=== PATIENT | female | born 1935 | race Caucasian/White ===

== ENCOUNTER 2020-04-25 07:10 | Day surgery (SDC) | payer OTHER, BC ==
[~2020-04-25] VITALS: Ht 162.6 cm; Wt 103.9 kg
[~2020-04-25 07:10] MED LIST: ASA81BEC PO; CALCIUM 600 +1 EAC8 PO; CEPHALEXIN500 MG PO; COUMADIN 2.5MG2.5 M1 PO; COUMADIN 5 MG TA5 M1 PO; CYTO B PO; DILTIAZEM 24HR120 M1 PO; FISH OIL 1,0001 EAC9 PO; IRON18 M1 PO; LEVOXYL88 MCG PO; LISINOPRIL10 MG PO; LOPRESSOR50 MG PO; MULTI VITAMIN1 EACH PO; OMEPRAZOLE40 MG PO; POTASSIUM20 PO; THERA TEARS15 ML OPHTHALMIC; TORSEMIDE20 MG PO; VITAMIN D31250 MCG PO; WIXELA 250-501 EACH INH
[2020-04-25 08:00] VITALS: BP 117/65
[2020-04-25 08:14] LABS: INR 1.2
--- NOTE | 2020-04-29 06:20 | O ---
[facility] [address] [place] [address] OPERATIVE REPORT Name: GIOVANI ARAUJO Room #: DEP [facility].#: [id number] Admission: 04/25/20 Attend Phys: Kaiser Whitlock MD Discharge: 04/25/20 Date of : 37 Report #: [id number] THIS REPORT FOR: cc: Hemanth Martinez MD, Dann MD White,Kaiser Oconnor MD ~ CC: Hemanth Whitlock DATE OF SERVICE: 04/25/2020 PREOPERATIVE DIAGNOSIS: Tumor of left lower lid and cheek. POSTOPERATIVE DIAGNOSIS: Tumor of left lower lid and cheek. PROCEDURE: Excision of tumor, left lower lid and cheek with frozen section, control of margins and myocutaneous flap repair of defect. SURGEON: Kaiser Whitlock MD WARRANT CLERK: None. ANESTHESIA: MAC. COMPLICATIONS: None. INDICATIONS FOR SURGERY: This pleasant 84-year-old woman has a nodular ulcerative mass in her central left lower lid that appears to most likely be a basal cell carcinoma. She presents today for excision of this lesion with frozen sections and subsequent reconstruction of that defect. Informed consent was obtained to include but not limited to the potential risk for loss of vision, bleeding, infection, failure to improve the problem, the potential need for further surgery or treatment. DESCRIPTION OF PROCEDURE: The patient was taken to the operating room where 2% Xylocaine with epinephrine mixed with equal parts 0.75% Marcaine with Wydase was administered transcutaneously and transconjunctivally to the left lower lid, the left lateral canthus, the left medial canthus and the left cheek. The patient was subsequently prepped and draped in the usual sterile fashion. A fine tip skin marking pen was then utilized to outline the lesion including 1-2 mm of normal appearing tissue. The incisions were then made perpendicularly across the eyelid margin and drawn down to a point in the premalar space. The specimen was then oriented on a drawing for the waiting pathologist. Hemostasis was achieved in the field with diligent pinpoint monopolar cautery. The pathologist [address] [address] OPERATIVE REPORT Name: GIOVANI ARAUJO Room #: DEP [facility] M.Rita.#: [id number] Admission: 04/25/20 Attend Phys: Kaiser Whitlock MD Discharge: 04/25/20 Date of : 37 Report #: [id number] snap froze the specimen and found that the margins were clear. She felt that the lesion was most likely a basal cell carcinoma, but would defer to permanent sections. A myocutaneous flap was then developed laterally to correct the defect. Hemostasis was then re-achieved. The flap was then advanced and secured with multiple interrupted buried 5-0 Vicryl sutures deep. A 5-0 Vicryl sutures were also placed to reapproximate the tarsal stump end. The eyelid margin was reapproximated with interrupted 7-0 Vicryl sutures. The subcutaneous structures more superficially were closed with layered subcutaneous Vicryl sutures and then a final closure of 6-0 plain gut. The wound was then cleaned and dressed with erythromycin ophthalmic ointment. The patient subsequently transported to the recovery area having tolerated the procedures well with no anesthetic or operative complications being noted. <ELECTRONICALLY SIGNED> By: Kaiser Whitlock MD 04/29/20 0620 [id number] Kaiser Whitlock MD /nt
--- NOTE | 2020-04-30 12:06 | PATH ---
[facility] [address] [address] [place] [address] PATHOLOGY RPT PROCEDURE Name: GIOVANI ARAUJO Room #: DEP [facility]#: [id number] Admission: 04/25/20 Date of : 37 Discharge: 04/25/20 Report #: [id number] Path Case #: [id number] [facility] Accession Number: [id number] . 01 Material submitted: . lid - LEFT LOWER LID LESION - FS. Modifiers: left, lower . 02 Frozen section diagnosis: . FROZEN SECTION DIAGNOSIS: (Hollie Madrid M.D.) . FSA1. Left lower lid lesion, excision: - Negative for invasive carcinoma at margins. . These findings are discussed with Dr. Kaiser Whitlock in OR6 at [facility] and a written report is placed in the patient's chart. . FROZEN SECTION GROSS DESCRIPTION: The specimen is received fresh from the OR labeled with the patient's name, as "left lower lid lesion" consists of an inverted triangular specimen measuring 1.0 cm from superior to inferior, a 0.7 cm base and sides of approximately 1 cm each. The specimen is oriented as lateral, inferior and medial. At this point the specimen is inked black from lateral to inferior margin, the inferomedial half is inked blue and the superomedial half is inked green. The superior border shows a 0.3 to 0.4 cm lesion. The superior border is inked orange. At this point the specimen is sectioned into two pieces and submitted for frozen section in entirety as FSA1, and subsequently submitted for permanent sections as A1. (IUV/db; 04/25/2020) . Frozen section performed at [facility] [address], [place] [address]. IZV/LBQ . 02 Diagnosis: Skin "left lower lid", biopsy: - BASAL CELL CARCINOMA; completely excised. (MLK:[facility]; 04/29/2020) [facility] 04/29/2020 15[address] [facility] . 02 Electronically signed: . Eze Arreguin MD, Pathologist NPI- [id number] . 01 Gross description: . SEE FROZEN SECTION GROSS DESCRIPTION. /LBQ 04/25/2020 1441 [facility] [address] PATHOLOGY RPT PROCEDURE Name: GIOVANI ARAUJO Room #: DEP [facility] [place]#: [id number] Admission: 04/25/20 Date of : 37 Discharge: 04/25/20 Report #: [id number] Path Case #: [id number] . 02 Pathologist provided ICD-10: C44.1192 . 02 CPT . 631111, 609271 Specimen Comment: A courtesy copy of this report has been sent to [phone], [phone] Specimen Comment: [phone] Specimen Comment: Report sent to / DR JACINTO Performed at: [address], [place] [id number] MD Esdras Joyce MD Phone: [phone] Performed at: [address] [id number] MD Hollie Madrid MD Phone: [phone]
== END 2020-04-25 10:45 | disposition home or self-care (01) ==
LOC: OR 07:10 → TBA 07:11 → OR 10:45
PROVIDERS: ATTEND Ophthalmology
DX: C44.1192 Basal cell carcinoma of skin of left lower eyelid, including canthus (principal); I10 Essential (primary) hypertension; I48.91 Unspecified atrial fibrillation; E78.5 Hyperlipidemia, unspecified; K21.9 Gastro-esophageal reflux disease without esophagitis; G47.30 Sleep apnea, unspecified; Z98.890 Other specified postprocedural states; Z11.59 Encounter for screening for other viral diseases; Z79.899 Other long term (current) drug therapy; Z90.710 Acquired absence of both cervix and uterus; Z85.828 Personal history of other malignant neoplasm of skin; Z98.41 Cataract extraction status, right eye; Z98.42 Cataract extraction status, left eye; Z96.651 Presence of right artificial knee joint; Z88.0 Allergy status to penicillin; Z88.2 Allergy status to sulfonamides
CPT/HCPCS: 50010; 50101; 50386; 50398; 51636; 56528; 56531; 62110; 62850; 70005